=== PATIENT | female | born 1940 | race Caucasian/White ===

== ENCOUNTER 2018-07-10 14:44 | Emergency (ER) | payer OTHER ==
[2018-07-10] MEDS ORDERED: NS 1,000 ML IV ONE (15:18)
--- NOTE | 2018-07-10 15:18 | EDPHY ---
H & P Stated Complaint: SOB, weakness, feeling faint, dizziness Time Seen by Provider: 07/10/18 15:04 HPI/ROS: CHIEF COMPLAINT: Lightheaded, short of breath, urinary frequency HISTORY OF PRESENT ILLNESS: Patient is a 78-year-old female with a history of Parkinson's. She states that today she has felt slightly lightheaded and short of breath. She states that this often happens when she forgets to take her Sinemet which she takes every 4 hr. She was only half an hour late taking it today however. She has also noticed increased urinary frequency over the last 24 hr and asked her friend to take her to the hospital. She typically goes to [place] but had to stop twice to urinate in route and decided to come here to [place] because it was closer. She denies chest pain or lower abdominal pain. No dysuria. No hematuria. No nausea vomiting or GI symptoms. She states that she feels dehydrated because she is urinating so often. She also states that sometimes this happens and a causes cramping and itching in her legs. She was also concerned because she usually has low blood pressure today her blood pressure was 140/80. No headache. No chest pain. She also reports that she thinks this may be an anxiety attack which she has only had 1 or 2 of those before in her life. Severity: Moderate Modifying factors: None REVIEW OF SYSTEMS: Constitutional: denies: chills, fever, recent illness, recent injury EENTM: denies: blurred vision, double vision, nose congestion Respiratory: See HPI Cardiac: See HPI denies: chest pain, irregular heart rate, palpitations Gastrointestinal/Abdominal: denies: abdominal pain, diarrhea, nausea, vomiting, blood streaked stools Genitourinary: denies: dysuria, frequency, hematuria, pain Musculoskeletal: denies: joint pain, muscle pain Skin: denies: lesions, rash, jaundice, bruising Neurological: denies: headache, numbness, paresthesia, tingling, dizziness, weakness Hematologic/Lymphatic: denies: blood clots, easy bleeding, easy bruising Immunologic/allergic: denies: HIV/AIDS, transplant 10 systems reviewed and negative except as noted EXAM: GENERAL: Well-appearing, well-nourished and in no acute distress. HEAD: Atraumatic, normocephalic. EYES: Pupils equal round and reactive to light, extraocular movements intact, sclera anicteric, conjunctiva are normal. ENT: TMs normal, nares patent, oropharynx clear without exudates. Moist mucous membranes. NECK: Normal range of motion, supple without lymphadenopathy or JVD. LUNGS: Breath sounds clear to auscultation bilaterally and equal. No wheezes rales or rhonchi. HEART: Regular rate and rhythm without murmurs, rubs or gallops. ABDOMEN: Soft, nontender, normoactive bowel sounds. No guarding, no rebound. No masses appreciated. BACK: No CVA tenderness, no spinal tenderness, step-offs or deformities EXTREMITIES: Normal range of motion, no pitting or edema. No clubbing or cyanosis. NEUROLOGICAL: Cranial nerves II through XII grossly intact. Normal speech, normal gait. 5/5 strength, normal movement in all extremities, normal sensation , normal reflexes PSYCH: Normal mood, normal affect. SKIN: Warm, dry, normal turgor, no visible rashes or lesions. Source: Patient Exam Limitations: No limitations - Personal History Current Tetanus Diphtheria and Acellular Pertussis (TDAP): Yes - Medical/Surgical History Hx Asthma: No Hx Chronic Respiratory Disease: No Hx Diabetes: No Hx Cardiac Disease: No Hx Renal Disease: No Hx Cirrhosis: No Hx Alcoholism: No Hx HIV/AIDS: No Hx Splenectomy or Spleen Trauma: No Other PMH: parkinsons, hypothyroid, osteorthritis, sciatica - Family History Significant Family History: No pertinent family hx - Social History Smoking Status: Never smoked Alcohol Use: Sober Drug Use: None Constitutional: Initial Vital Signs Temperature (C) 36.6 C 07/10/18 14:49 Heart Rate 79 07/10/18 14:49 Respiratory Rate 16 07/10/18 14:49 Blood Pressure 142/94 H 07/10/18 14:49 O2 Sat (%) 95 07/10/18 14:49 O2 Delivery Mode Room Air Allergies/Adverse Reactions: codeine Allergy (Verified 07/10/18 14:53) epinephrine Allergy (Verified 07/10/18 14:53) Home Medications: Medication Instructions Recorded ARMOUR THYROID 07/10/18 CARBIDOPA-LEVODOPA 10-100 TAB 07/10/18 Medical Decision Making - Diagnostics EKG Interpretation: An EKG obtained and was read and documented in trace view. Please see trace view for full reading and report. Sinus rhythm, no acute ischemic change Imaging Results: Imaging Impressions Chest X-Ray 07/10/18 15:19 Impression: Chronic airways disease. No acute process. Imaging: Discussed imaging studies w/ subgrade tester Radiologist ED Course/Re-evaluation: Patient's lab work is thus far reassuring. Patient's D-dimer is age adjusted negative. She is saturating 98% on room air and not tachypneic. The patient's lab work is reassuring other than slight amount of hematuria. This combined with her urinary frequency leads me to believe that she has urinary tract infection. This would also explain her lightheadedness and mild confusion. Will start her on antibiotics. She and her friend are scared for her to go home and feel that she cannot take care of herself in this state. She does live alone. I will call [facility] for transfer. 4:30 p.m. discussed the case with Dr. Itzel blevins from [facility] transfer line. She says the patient in transfer. 5:30 p.m. Patient accepted by Dr. De La Torre to [facility]. Transfer paperwork completed. Differential Diagnosis: Partial list of the Differential diagnosis considered include but were not limited to; urinary tract infection, dehydration, electrolyte abdomen and although unlikely based on the history and physical exam, I also considered thyroid abnormality, acute coronary disease, PE. - Data Points Laboratory Results: Laboratory Results 07/10/18 15:30 07/10/18 15:30 07/10/18 07/10/18 07/10/18 15:33 15:30 15:30 WBC RBC Hgb Hct MCV MCH MCHC RDW Plt Count MPV Neut % (Auto) Lymph % (Auto) Mccracken % (Auto) Eos % (Auto) Baso % (Auto) Nucleat RBC Rel Count Absolute Neuts (auto) Absolute Lymphs (auto) Absolute Monos (auto) Absolute Eos (auto) Absolute Basos (auto) Absolute Nucleated RBC Immature Gran % Immature Gran # D-Dimer 0.51 ug/mLFEU H ug/mLFEU (0.00-0.50) Sodium 133 mEq/L L mEq/L (135-145) Potassium 4.2 mEq/L mEq/L (3.5-5.2) Chloride 100 mEq/L mEq/L (97-110) Carbon Dioxide 24 mEq/l mEq/l (22-31) Anion Gap 9 mEq/L mEq/L (6-14) BUN 8 mg/dL mg/dL (7-23) Creatinine 0.5 mg/dL L mg/dL (0.6-1.0) Estimated GFR > 60 Glucose 87 mg/dL mg/dL (70-100) Calcium 9.4 mg/dL mg/dL (8.5-10.4) POC Troponin I 0.00 ng/mL ng/mL (0.00-0.08) TSH 1.560 uIU/mL uIU/mL (0.465-4.680) Free T4 0.81 ng/dL ng/dL (0.59-2.19) Urine Color Urine Appearance Urine pH Ur Specific [place] Urine Protein Urine Ketones Urine Blood Urine Nitrate Urine Bilirubin Urine Urobilinogen Ur Leukocyte Esterase Urine RBC Urine WBC Ur Epithelial Cells Urine Mucus Urine Glucose 07/10/18 07/10/18 15:30 15:00 WBC 5.26 10^3/uL 10^3/uL (3.80-9.50) RBC 4.37 10^6/uL 10^6/uL (4.18-5.33) Hgb 13.4 g/dL g/dL (12.6-16.3) Hct 39.4 % % (38.0-47.0) MCV 90.2 fL fL (81.5-99.8) MCH 30.7 pg pg (27.9-34.1) MCHC 34.0 g/dL g/dL (32.4-36.7) RDW 12.5 % % (11.5-15.2) Plt Count 281 10^3/uL 10^3/uL (150-400) MPV 9.6 fL fL (8.7-11.7) Neut % (Auto) 70.1 % % (39.3-74.2) Lymph % (Auto) 20.7 % % (15.0-45.0) Mccracken % (Auto) 7.2 % % (4.5-13.0) Eos % (Auto) 1.0 % % (0.6-7.6) Baso % (Auto) 0.6 % % (0.3-1.7) Nucleat RBC Rel Count 0.0 % % (0.0-0.2) Absolute Neuts (auto) 3.69 10^3/uL 10^3/uL (1.70-6.50) Absolute Lymphs (auto) 1.09 10^3/uL 10^3/uL (1.00-3.00) Absolute Monos (auto) 0.38 10^3/uL 10^3/uL (0.30-0.80) Absolute Eos (auto) 0.05 10^3/uL 10^3/uL (0.03-0.40) Absolute Basos (auto) 0.03 10^3/uL 10^3/uL (0.02-0.10) Absolute Nucleated RBC 0.00 10^3/uL 10^3/uL (0-0.01) Immature Gran % 0.4 % % (0.0-1.1) Immature Gran # 0.02 10^3/uL 10^3/uL (0.00-0.10) D-Dimer Sodium Potassium Chloride Carbon Dioxide Anion Gap BUN Creatinine Estimated GFR Glucose Calcium POC Troponin I TSH Free T4 Urine Color PALE YELLOW Urine Appearance CLEAR Urine pH 7.0 (5.0-7.5) Ur Specific [place] 1.002 (1.002-1.030) Urine Protein NEGATIVE (NEGATIVE) Urine Ketones NEGATIVE (NEGATIVE) Urine Blood 1+ H (NEGATIVE) Urine Nitrate NEGATIVE (NEGATIVE) Urine Bilirubin NEGATIVE (NEGATIVE) Urine Urobilinogen NEGATIVE EU EU (0.2-1.0) Ur Leukocyte Esterase NEGATIVE (NEGATIVE) Urine RBC 5-10 /hpf H /hpf (0-3) Urine WBC 1-3 /hpf /hpf (0-3) Ur Epithelial Cells TRACE /lpf /lpf (NONE-1+) Urine Mucus TRACE /lpf /lpf (NONE-1+) Urine Glucose NEGATIVE (NEGATIVE) Medications Given: Discontinued Medications Sodium Chloride (Ns) 1,000 mls @ 0 mls/hr IV EDNOW ONE; Wide Open PRN Reason: Protocol Stop: 07/10/18 15:19 Last Admin: 07/10/18 15:27 Dose: 1,000 mls Ceftriaxone Sodium/Dextrose (Rocephin 1 Gm (Premix)) 50 mls @ 100 mls/hr IV EDNOW ONE PRN Reason: Protocol Stop: 07/10/18 16:56 Last Admin: 07/10/18 17:23 Dose: 50 mls Point of Care Test Results: Chemistry 07/10/18 15:33 POC Troponin I 0.00 ng/mL ng/mL (0.00-0.08) Departure - Departure Disposition: [facility] Clinical Impression: Pre-syncope Urinary tract infection Qualifiers: Urinary tract infection type: acute cystitis Hematuria presence: with hematuria Qualified Code(s): N30.01 - Acute cystitis with hematuria Condition: Fair Referrals: BLAZE KUMARI [Primary Care Provider] - As per Instructions
--- NOTE | 2018-07-10 15:39 | CPEKG ---
Test Reason : OPEN Blood Pressure : / mmHG Vent. Rate : 075 BPM Atrial Rate : 074 BPM P-R Int : 137 ms QRS Dur : 089 ms QT Int : 409 ms P-R-T Axes : 065 -40 033 degrees QTc Int : 457 ms Sinus rhythm Left anterior fascicular block Anteroseptal infarct, age indeterminate Confirmed by Megan Liao ([id number]) on 07/10/2018 3:38:52 PM Referred By: MEGAN LIAO Confirmed By:Megan Liao
[2018-07-10 15:40] LABS: PLATELET COUNT 281 10^3/uL (150-400)
[2018-07-10 17:48] VITALS: BP 168/106
== END 2018-07-10 18:19 | disposition short-term general hospital (02) ==
DX: R55 Syncope and collapse (principal); N30.01 Acute cystitis with hematuria; E86.9 Volume depletion, unspecified; G20 Parkinson's disease
CPT/HCPCS: 71046; 93005; 96361; 96374; 99285; J0696; 84484-ER